=== PATIENT | female | born 1960 | race Caucasian/White ===

== ENCOUNTER → 2023-12-13 | Outpatient (REF) | payer MEDICARE | LOC: MAMMO 14:30 | PROVIDERS: ATTEND Obstetrics & Gynecology | DX: R92.8 Other abnormal and inconclusive findings on diagnostic imaging of breast (principal) ==

== ENCOUNTER → 2024-08-12 | Outpatient (REF) | payer MEDICARE, BC | LOC: MAMMO 12:22 | PROVIDERS: ATTEND Student in an Organized Health Care Education/Training Program | DX: R92.8 Other abnormal and inconclusive findings on diagnostic imaging of breast (principal) | CPT/HCPCS: 77066 ==